=== PATIENT | female | born 1990 | race Caucasian/White ===

== ENCOUNTER 2019-05-16 09:29 | Emergency (ER) | payer OTHER ==
[~2019-05-16] VITALS: Ht 157.5 cm; Wt 59.0 kg
[~2019-05-16 09:29] MED LIST: KETO10TA2 PO
[2019-05-16] MEDS ORDERED: DICLOFENAC SODI75 MG PO (17:43)
== END 2019-05-16 19:10 | disposition home or self-care (01) ==
LOC: ER 09:29
DX: M62.838 Other muscle spasm (principal); R10.2 Pelvic and perineal pain